=== PATIENT | female | born 1985 | race Two or more races ===

== ENCOUNTER 2024-12-13 12:22 | Emergency (ER) | payer MEDICAID, SELFPAY ==
[2024-12-13 12:33] VITALS: BP 124/80; PULSE 99; RESP 19; TEMP 36.7; O2SAT 98; BMI 28.3
--- NOTE | 2024-12-13 12:38 | PD.EDRME ---
Rapid Medical Screening Exam RME Arrival date/time: 12/13/24 12:22 38-year-old female with no known medical history presents to the emergency room with a chief complaint of altered mental status. Daughter at bedside states the mother routinely uses methamphetamine but states this morning her boyfriend dropped her off at her house and told her for the last 3 to 4 days patient has been talking about her mother who she has not seen and is not making any sense. Daughter states the mother is not at her baseline mentation. The mother also has multiple bruises to her arms face that according to daughter were not there. I have greeted and performed a focused initial assessment of this patient. A comprehensive ED assessment and evaluation of the patient, analysis of all test results, and completion of the medical decision making process will be conducted by additional ED providers. Chief Complaint: General Adult/Misc Complain Time Seen by Provider: 12/13/24 12:30 Vital signs: Vital Signs Temperature 98.1 F 12/13/24 12:33 Pulse Rate 99 12/13/24 12:33 Respiratory Rate 19 12/13/24 12:33 Blood Pressure 124/80 12/13/24 12:33 Pulse Oximetry (%) 98 12/13/24 12:33 Oxygen Delivery Method Room Air 12/13/24 12:33 Vital signs reviewed by provider: Yes
[2024-12-13 12:56] LABS: Collection Type, Urine Clean Catch
[2024-12-13 13:17] LABS: Basophils # (Auto) 0.1 Thou/mm3 (0.0-0.2); Basophils % (Auto) 1 % (0-2.5); Eosinophils % (Auto) 1 % (0-10); Immature Granulocytes % (Auto) 0 % (0-0); Immature Granulocytes Auto 0.03 Thou/mm3 (0.00-0.00); Lymphocytes # (Auto) 1.7 Thou/mm3 (1.0-4.8); Lymphocytes % (Auto) 20 % (10-50); Mean Corpuscular HGB Conc 27.8 g/dl (31.0-37.0); Mean Corpuscular Volume 61 fL (80-100); Monocytes # (Auto) 0.5 Thou/mm3 (0.0-0.8); Monocytes % (Auto) 5 % (0-12); Neutrophils # (Auto) 6.4 Thou/mm3 (1.8-7.7); Neutrophils % (Auto) 74 % (37-80); Nucleated Red Blood Cell % 0 /100 WBC (0); Platelet Count 314 Thou/mm3 (140-440); RDW Standard Deviation 43.5 fL (36.4-46.3); Red Blood Count 4.42 Miln/mm3 (4.00-5.20); White Blood Count 8.7 Thou/mm3 (3.6-11.0)
[2024-12-13 13:22] LABS: Ammonia < 10 uMol/L (11-32)
[2024-12-13 13:23] LABS: Hemoglobin 7.5 g/dL (12.0-16.0)
[2024-12-13 13:32] LABS: Bacteria,Urine 4+; Bilirubin,Urine Negative (Negative); Blood,Urine 3+ (Negative); Clarity,Urine Turbid (Clear/Hazy); Color,Urine Yellow (Lt Yel-Yel); Glucose, Urine Negative (Negative); Ketones,Urine Negative (Negative); Leukocyte Esterase,Urine Positive (Negative); Nitrite,Urine Positive (Negative); Protein,Urine Trace (Neg - Trace); RBC,Urine 13 /hpf (0-3); Specific Gravity,Urine 1.033 (1.001-1.035); Squamous Epithelial Cell,Urine 3 /hpf (0-5); Urobilinogen,Urine Negative mg/dL (0.0-1.0); WBC,Urine 13 /hpf (0-5)
[2024-12-13 13:34] LABS: Alanine Aminotransferase 11 U/L (10-49); Albumin, Serum 4.3 gm/dL (3.5-5.0); Albumin/Globulin Ratio 1.4 (1.2-2.2); Alcohol, Blood Medical < 3.0 mg/dL (0-10.0); Alkaline Phosphatase 70 U/L (46-116); Anion Gap 12 (7-16); Aspartate Amino Transferase 14 U/L (0-34); BUN/Creatinine Ratio 27 Ratio (12-20); Bilirubin,Total 0.3 mg/dL (0.3-1.2); Blood Urea Nitrogen 16 mg/dL (9-23); Calcium 8.7 mg/dL (8.3-10.6); Calcium (Corrected) 8.7 mg/dL (8.5-10.1); Carbon Dioxide 24.5 mMol/L (20.0-31.0); Chloride 107 mMol/L (98-107); Creatinine (Component) 0.6 mg/dL (0.6-1.3); Estimated Creatinine Clearance 113.3 mL/min (>60); Globulin 3.1 gm/dL (2.3-3.5); Glucose 104 mg/dL (74-106); Osmolality,Calculated 286 (275-295); Potassium 3.3 mMol/L (3.4-5.1); Sodium 143 mMol/L (136-145); Total Protein 7.4 gm/dL (5.7-8.2); Troponin I < 0.002 ng/mL (0.0-0.045); eGFR > 60 See Note
[2024-12-13 13:56] LABS: Amphetamine/Methamp Scrn,U Positive (Negative); Barbiturate Screen,Urine Negative (Negative); Benzodiazepines Screen,Urine Negative (Negative); Benzoylecgonine Screen, Ur Negative (Negative); Fentanyl Screen,Urine Negative (Negative); Opiate Screen,Urine Negative (Negative); THC Screen,Urine Negative (Negative)
[2024-12-13 17:20] LABS: Path Review Blood Smear Sent to Pathologist
--- NOTE | 2024-12-13 18:01 | PC.NURSE ---
1735 PT CALLED FROM LOBBY AND NO ANSWER 1800 PT CALLED FROM LOBBY AND NO ANSWER
--- NOTE | 2024-12-13 18:05 | PC.NURSE ---
CALLED FROM LOBBY AND NO ANSWER. NOT FOUND INSIDE THE E.D. OR OUTSIDE
== END 2024-12-13 18:06 | disposition left against medical advice (07) ==
PROVIDERS: Nurse Practitioner Family; Emergency Provider Family Medicine; PCP Family Medicine
DX: R41.82 Altered mental status, unspecified (principal); Z53.29 Procedure and treatment not carried out because of patient's decision for other reasons
CPT/HCPCS: 36415; 80053; 80307; 80320; 81001; 82140; 84484; 85025; 87077; 87086; 87186; 99281; G0480

== ENCOUNTER 2024-12-14 02:46 | Emergency (ER) | payer MEDICAID, SELFPAY ==
[2024-12-14] VITALS (7 sets, daily range): BP systolic 109–148; BP diastolic 72–101; PULSE 60–91; RESP 18–20; TEMP 36.2–36.8; O2SAT 96–100; BMI 32.2
--- NOTE | 2024-12-14 02:52 | EDNOTE_ITS ---
ED Psych RME/HPI General Chief Complaint: Psychiatric Symptoms Stated Complaint: HEARING VOICES Time Seen by Provider: 12/14/24 03:16 Arrival date/time: 12/14/24 02:46 RME / HPI RME / HPI Narrative: This section includes all my notes and documentations, including HPI, PE, and ED course. Jose L Aldrich MD HPI: 38 y/o female with recent Hx of Methamphetamine use presents to ED BIBA from home c/o hearing voices s/p methamphetamine use x 2 days ago. Patient was out walking around after the voices told her to run out the door and was picked up by [employer]. [employer] was going to drop her off at home, but mother said that she was not acting like herself. Patient wanted to come to ED and is requesting assistance in stopping with substance abuse. Admits to only hearing voices when under the influence to which she admits to using every other day. Denies history of depression or schizophrenia or any other psychiatric diagnoses or treatments. Denies HI/SI, or visual hallucinations. She has never been admitted to an [facility] facility. Also denies abdominal pain. No other complaints. ROS: All negative except as documented in HPI. Physical Exam: General:? Alert and oriented.? Eyes:? Conjunctivae and lids clear.? EOMI.? PERRL. ENT:? No nasal congestion.? Pharynx normal.? Tympanic membrane normal bilaterally.??? Neck:? Supple.? Heart:? RRR.? Lungs:? No respiratory distress.? Good air movement.? No rhonchi, wheezing, rales.?? Abdomen:? Soft and nontender.? Skin:? Warm and dry.?? Neuro:? Alert and oriented X 3.? Cranial Nerves II-XII grossly intact.? No peripheral motor deficits. Musculoskeletal:? All major joints and bones are not tender with no limited ROM.? I reviewed EMS notes. Blood tests and urine tests pending. Oral KCl given for hypokalemia. When patient started walking around the ED with agitation and not being cooperative, she was given Xanax 1.5 mg to help her rest. At 6 AM on 12/14/2024, the care of the patient was transferred to Dr. ROCHA. Jose L Aldrich MD Related Data Allergies Allergy/AdvReac Type Severity Reaction Status Date / Time No Known Allergies Allergy Mild nka Uncoded 12/14/24 03:26 Review of Systems Review of Systems Systems Reviewed: All systems reviewed, normal except as documented Past Medical History Social History SMOKING STATUS: Former smoker SUBSTANCE USE: methamphetamine SUBSTANCE LAST USED: days (ago) (2) LIVES WITH: Family ED Exam Narrative Physical exam: Refer to HPI above Course Quality Measures none Orders Category Date Time Status Straight [In and Out Catheter] X1 Care 12/14/24 04:05 Active Referral Psych Eval Stat Cons 12/14/24 02:59 Active Acetaminophen Stat Lab 12/14/24 03:21 Completed Alcohol, Blood Medical Stat Lab 12/14/24 03:21 Completed CBC Stat Lab 12/14/24 03:21 Received CMP [Comprehensive Metabolic Panel] Stat Lab 12/14/24 03:21 Completed Drug Screen,Urine Stat Lab 12/14/24 02:58 Ordered Free T4 (Free Thyroxine) Stat Lab 12/14/24 03:21 Completed HCG Qualitative,Urine Stat Lab 12/14/24 02:58 Ordered HCG,Qualitative Serum Stat Lab 12/14/24 03:21 Completed Magnesium Stat Lab 12/14/24 03:21 Completed Salicylate Stat Lab 12/14/24 03:21 Completed TSH [Thyroid Stimulating Hormone] Stat Lab 12/14/24 03:21 Completed UA, C/S IF [Urinalysis, C/S if Indicated] Stat Lab 12/14/24 02:58 Ordered ALPRazoLAM [Xanax] Med 12/14/24 03:13 Discontinued 1.5 mg PO X1 ONE KCL 10% Liq UDC 15 ML Med 12/14/24 04:04 Discontinued 40 meq PO X1 ONE Vital Signs Vital signs: Vital Signs Temperature 97.8 F 12/14/24 03:39 Pulse Rate 79 12/14/24 03:39 Respiratory Rate 18 12/14/24 03:39 Blood Pressure 148/72 H 12/14/24 03:39 Pulse Oximetry (%) 99 12/14/24 03:39 Oxygen Delivery Method Room Air 12/14/24 03:39 Psych MDM Narrative MDM Narrative:: Scribe Attestation: IDalila, am scribing for and in the presence of Dr. Aldrich. Provider Notation: Although this document has been carefully reviewed, there may still be some phonetic and other typographical errors.? These errors are purely grammatical due to imperfections in the software program and should not be construed in any way to? compromise the substance of the patient's medical care during this visit. 38 y/o female with recent Hx of Methamphetamine use presents to ED BIBA from home c/o hearing voices s/p methamphetamine use x 2 days ago. Patient data External records reviewed:: [facility] previous records (No prior ED records available for review.) and EMS form Clinical information provided by:: patient and EMS Social determinants that could affect healthcare access:: substance use (Methamphetamine) Patient has the following chronic illnesses:: None reported How is presenting disease/condition affected by chronic disease/condition?: no chronic disease Evaluation data The following diagnostics were reviewed and interpreted by me:: lab results Lab and/or radiology exams considered but not ordered:: None Interpretation Summary: Complete diagnostic test results pending. Medications / Prescriptions Medications or Prescriptions considered but not ordered:: None Medication administrations:: Medication Administration History Discontinued Medications Alprazolam (Alprazolam 0.25 Mg Tablet) 1.5 mg PO X1 ONE Stop: 12/14/24 03:14 Last Admin: 12/14/24 03:55 Dose: 1.5 mg Documented By: EE Potassium Chloride (Potassium Chloride 10% 20 Meq/15 Ml Udc) 40 meq PO X1 ONE Stop: 12/14/24 04:05 Xanax, Potassium Chloride. Consultations Consultation(s) initiated? (list below): No Diagnosis Psych Differential Diagnosis: acute psychosis, suicidal ideation, bipolar disorder, depression, drug-induced psychotic disorder, acute anxiety and other (schizophrenia) Most likely diagnosis given after review of the tests above:: Acute psychosis Admission Indicated Admission indicated?: not indicated Explain why admission is indicated or not indicated:: Complete diagnostic test results and evaluation by our ED critical care transport nurse pending. Admission Request Was there a request for admission?: No Disposition Plan Disposition Plan: other (specify) (Care of the patient to Dr. ROCHA.) Discharge Plan Problem List Clinical Impression: Acute psychosis Patient/Caregiver Discharge Instructions Print Language: Bulgarian
[2024-12-14 03:30] LABS: Basophils # (Auto) 0.1 Thou/mm3 (0.0-0.2); Basophils % (Auto) 1 % (0-2.5); Eosinophils # (Auto) 0.1 Thou/mm3 (0.0-0.5); Eosinophils % (Auto) 1 % (0-10); Hematocrit 25.6 % (36.0-46.0); Immature Granulocytes % (Auto) 0 % (0-0); Immature Granulocytes Auto 0.02 Thou/mm3 (0.00-0.00); Lymphocytes # (Auto) 1.6 Thou/mm3 (1.0-4.8); Lymphocytes % (Auto) 18 % (10-50); Mean Corpuscular HGB Conc 28.5 g/dl (31.0-37.0); Mean Corpuscular Hemoglobin 17.1 pg (25.0-35.0); Mean Corpuscular Volume 60 fL (80-100); Monocytes # (Auto) 0.5 Thou/mm3 (0.0-0.8); Monocytes % (Auto) 6 % (0-12); Neutrophils # (Auto) 6.7 Thou/mm3 (1.8-7.7); Neutrophils % (Auto) 75 % (37-80); Nucleated Red Blood Cell % 0 /100 WBC (0); Platelet Count 335 Thou/mm3 (140-440); RDW Standard Deviation 42.6 fL (36.4-46.3); Red Blood Count 4.28 Miln/mm3 (4.00-5.20)
[2024-12-14] MEDS: ALPRazoLAM 0.25 MG TABLET 1.5 MG PO (03:55)
[2024-12-14 04:00] LABS: Acetaminophen < 2.0 mcg/mL (10.0-20.0); Alanine Aminotransferase 12 U/L (10-49); Albumin, Serum 4.4 gm/dL (3.5-5.0); Albumin/Globulin Ratio 1.4 (1.2-2.2); Alcohol, Blood Medical < 3.0 mg/dL (0-10.0); Alkaline Phosphatase 67 U/L (46-116); Anion Gap 6 (7-16); Aspartate Amino Transferase 19 U/L (0-34); BUN/Creatinine Ratio 30 Ratio (12-20); Bilirubin,Total 0.3 mg/dL (0.3-1.2); Blood Urea Nitrogen 15 mg/dL (9-23); Calcium 9.1 mg/dL (8.3-10.6); Calcium (Corrected) 9.1 mg/dL (8.5-10.1); Carbon Dioxide 24.6 mMol/L (20.0-31.0); Chloride 104 mMol/L (98-107); Creatinine (Component) 0.5 mg/dL (0.6-1.3); Estimated Creatinine Clearance 139.2 mL/min (>60); Free T4 (Free Thyroxine) 1.21 ng/dL (0.89-1.76); Globulin 3.2 gm/dL (2.3-3.5); Glucose 111 mg/dL (74-106); Magnesium 1.8 mg/dL (1.6-2.6); Osmolality,Calculated 271 (275-295); Salicylate < 3.0 mg/dL; Sodium 135 mMol/L (136-145); Total Protein 7.6 gm/dL (5.7-8.2); eGFR > 60 See Note
[2024-12-14 04:12] LABS: HCG,Qualitative Serum Negative
[2024-12-14 04:50] LABS: Hemoglobin 7.3 g/dL (12.0-16.0)
[2024-12-14] MEDS: POTASSIUM CHLORIDE 10% 20 MEQ/15 ML UDC 40 MEQ PO (04:57)
[2024-12-14 05:04] LABS: Collection Type, Urine Clean Catch
[2024-12-14 05:17] LABS: Bacteria,Urine 2+; Bilirubin,Urine Negative (Negative); Blood,Urine Trace (Negative); Clarity,Urine Clear (Clear/Hazy); Color,Urine Lt-Yellow (Lt Yel-Yel); Glucose, Urine Negative (Negative); Ketones,Urine Negative (Negative); Leukocyte Esterase,Urine Positive (Negative); Nitrite,Urine Positive (Negative); PH,Urine 5.5 (5.0-7.0); Protein,Urine Negative (Neg - Trace); RBC,Urine 3 /hpf (0-3); Specific Gravity,Urine 1.024 (1.001-1.035); Squamous Epithelial Cell,Urine 1 /hpf (0-5); Urobilinogen,Urine Negative mg/dL (0.0-1.0); WBC,Urine 32 /hpf (0-5)
[2024-12-14 05:19] LABS: HCG Qualitative,Urine Negative
[2024-12-14 05:20] LABS: Culture Indicated,Urine Yes
[2024-12-14 05:22] LABS: Amphetamine/Methamp Scrn,U Negative (Negative); Barbiturate Screen,Urine Negative (Negative); Benzodiazepines Screen,Urine Positive (Negative); Benzoylecgonine Screen, Ur Negative (Negative); Fentanyl Screen,Urine Negative (Negative); Opiate Screen,Urine Negative (Negative); THC Screen,Urine Negative (Negative)
--- NOTE | 2024-12-14 06:23 | PD.EDADDENDU ---
Emergency Room Addendum <Sintia Valiente - Last Filed: 12/14/24 16:44> Addendum Narrative: 0600: Care assumed from Dr. Aldrich, the previous shift emergency physician. Past medical, surgical, social and family history reviewed. Vitals and home medications reviewed. I will assume the care of the patient at this time, pending reevaluation and final disposition. Please refer to the emergency department record for history and examination from initial visit.? Physical exam by me shows patient under no acute distress at this time. CBC shows microcytic anemia. UA consistent with UTI. Drug screen negative other than benzodiazepines which were given here. Physical exam by me shows patient under no acute distress at this time. Sleepy but arousable to voice. At 0902 hours, patient's family is here her niece and mother. They states the patient is usually aggressive and has bizarre behavior at home. They state the patient does not live with them just visits randomly, but when she does she is aggressive, scares the kids, and breaks stuff. They cannot take care of her. Family does not know if she is using drugs. 0958: Mental health placed patient on a 5150 hold for gravely disabled. The patient was placed in ED observation care at 12/14/2024 at 0958 hours. The patient was placed in ED observation care after mental health placed her on 5150 hold and gravely disabled. The patients past medical history, social history, and family history were reviewed. The plan of care will include serial examinations. While in ED observation the patient will have access to water, food, and personal hygiene. If the patient takes home medication(s), they will be continued in ED observation. 1255: Patient got accepted to [facility] in [place]. ETA is 1640 hours. 1630: EMS here to pick the patient and transport to [facility] in [place]. ED observation care ended at 12/14/2024 at 1630 hours. <Milagros Grider MD - Last Filed: 12/14/24 06:34> Addendum Narrative: 0600: Care assumed from Dr. Aldrich, the previous shift emergency physician. Past medical, surgical, social and family history reviewed. Vitals and home medications reviewed. I will assume the care of the patient at this time, pending mental health evaluation. Please refer to the emergency department record for history and examination from initial visit.? Physical exam by me shows patient under no acute distress at this time. The patient was placed in ED observation care at 12/14/2024 at 0600 hours. The patient was placed in ED observation care pending mental health evaluation. <del>Then,</del> <del>mental</del> <del>health</del> <del>placed</del> <del>her</del> <del>on</del> <del>5150</del> <del>hold</del> <del>and</del> <del>now</del> <del>on</del> <del>observation</del> <del>care</del> <del>because</del> <del>of</del> <del>undifferentiated</del> <del>decompensated</del> <del>behavioral</del> <del>health</del> <del>evaluation,</del> <del>no</del> <del>behavioral</del> <del>health</del> <del>bed</del> <del>available</del>. The patients past medical history, social history, and family history were reviewed. The plan of care will include serial examinations. While in ED observation the patient will have access to water, food, and personal hygiene. If the patient takes home medication(s), they will be continued in ED observation. Physical exam by me shows patient under no acute distress at this time. XX: Patient is medically cleared for psychiatric evaluation. CBC shows microcytic anemia. UA consistent with UTI. Drug screen negative other than benzodiazepines which were given here. XX: Mental health placed the patient on a 5150 hold, pending placement. XX: Patient has been accepted to [facility]. ETA is XX. <del>xx:</del> <del>EMS</del> <del>here</del> <del>to</del> <del>pick</del> <del>the</del> <del>patient</del> <del>and</del> <del>transport</del> <del>to</del> <del>[place]</del> <del>[facility]</del> <del>[facility].</del> <del>ED</del> <del>observation</del> <del>care</del> <del>ended</del> <del>at</del> <del>12/14/2024</del> <del>at</del> <del>xx</del> <del>hours.</del> XX: Mental health cleared the patient/ rescinded the psychiatric hold. Safety plan in place. XX: Patient discharged. <del>ED</del> <del>observation</del> <del>care</del> <del>ended</del> <del>at</del> <del>12/14/2024</del> <del>at</del> <del>XX</del> <del>hours.</del>
[2024-12-14 07:38] LABS: Iron < 2 mcg/dL (50-170); Percent Iron Saturation 0 % (20-55); Total Iron Binding Capacity 365 mcg/dL (250-425); Unsaturated Iron Binding 363 (225-295)
[2024-12-14] MEDS: cephALEXin 250 MG CAPSULE 500 MG PO (08:08)
[2024-12-14] MEDS: MAGNESIUM OXIDE 400 MG TABLET PO (08:09)
--- NOTE | 2024-12-14 11:18 | PC.SS ---
FRANDY Rose met with the patient to complete a mental health evaluation as ED provider requesting one for the patient coming in due to hearing voices. c iron worker met with patient and explained role and reason for contact. The limits of confidentiality were disclosed to the patient. During encounter, patient appears to be unkempt with poor hygiene. Patient is able to engage in assessment, however has to be redirected in questions being asked repeatedly. Per patient, she was BIBA today due to running around yesterday and doing bad things . When asked what exactly, the patient could not say. Patient informs she had an argument with her brother Gaetano and could not explain what the argument was about. Patient denied SI and HI. Per patient he does experience audio hallucination. Patient reports I hear the voices say my name over and over . Patient appears to be responding to internal stimuli, speaking about her father when not asked about him. Patient additionally has to be redirected in answering questions. Per patient she is ambulatory and does not require use of DME. Patient denies following up with primary care at this time and denies any mental health diagnosis or medication intake. Per patient she has not had any previous suicide attempts or been placed on a hold in the past. Patient was asked about her personal hygiene, per patient she last ate and showered three days ago before coming into the ED. Patient states her boyfriend Wilber has to tell her to shower and remind her to eat. Per patient she lives with her boyfriend Wilber in [place] and unable to provide address or phone number as she could not recall it. Patient states she has four children, three are minors and are under her mother's Cedrick's custody. Patient reports her mother to be her emergency contact if necessary. Per patient she has been sleeping fine expect for having tooth ache at times. Patient disclosed to meth use three days ago and reports frequent use weekly. Of note, the patient does not have any history being seen for mental health reasons, toxicology report is negative for substances aside from Benzodiapines, which were provided in the ED and [place] scale screening for suicide is low triage. Patient provided verbal consent to speak to her mother Cedrick for collateral information. In speaking to her mother, she reports the patient was observed to be outside of her home late last night attempting to brake into personal property, cars and homes and law enforcement was contacted. Per mother, the patient has been noted to be acting different and displaying behaviors, appearing to not be at baseline from her normal mental state. Patient's mother is unsure if patient utilizes substances and does not feel safety planning would be appropriate as she has minor children in the home and does not feel it would be safe for them. Cedrick reports unknown mental health diagnosis or treatment on behalf of the patient at this time. Per Cedrick, she does not know where the patient resides as she will not disclose this information to the family. After clinical consultation with [facility], Alea Fonseca, it was determined that the patient meets criteria to be placed on a 5150 Hold for Gravely Disabled due to unviable safety plan, patient having to be prompted to complete her personal hygiene needs and responding to internal stimuli. Patient was provided with advisement. ED attending provider Marni, bed side DELMA Marte and family updated on disposition plan. ASW to send off packet for LPS placement.
--- NOTE | 2024-12-14 11:25 | PC.NURSE ---
[facility] called to take information regarding patient. I gave rep. information regarding patient coming to the hospital and current status.
--- NOTE | 2024-12-14 11:49 | PC.SS ---
[facility] called requesting a covid test for the patient as they are considering providing acceptance, notified bedside RN of request.
[2024-12-14] MEDS: LORazepam 0.5 MG TABLET 2 MG PO (12:17)
--- NOTE | 2024-12-14 12:52 | PC.SS ---
Addendum entered by WALDEMAR Burch 12/14/24 16:40: late entry: notified mother Cedrick in regards to patient being accepted at [facility]. Addendum entered by WALDEMAR Burch 12/14/24 15:18: ETA 1640 with [facility]. Addendum entered by WALDEMAR Burch 12/14/24 14:25: Faxed COVID test results to [facility]. Addendum entered by WALDEMAR Burch 12/14/24 13:42: Dispatch contacted, [facility] ETA pending. Original Note: SS update: patient was accepted to [facility] in [place]. [address] Crowe. Bed available now. Nurse to nurse report call . ASW to set up transportation for the patient.
--- NOTE | 2024-12-14 13:04 | PC.NURSE ---
Nurse-nurse report given to [facility]. I spoke with Klaus GNUYỄN and gave him report of patient's current status and medication that has been given.
== END 2024-12-14 16:09 ==
PROVIDERS: Emergency Medicine; Emergency Provider Emergency Medicine
DX: Z04.6 Encounter for general psychiatric examination, requested by authority (principal); F23 Brief psychotic disorder; D50.9 Iron deficiency anemia, unspecified; F15.90 Other stimulant use, unspecified, uncomplicated; Z75.1 Person awaiting admission to adequate facility elsewhere
CPT/HCPCS: 51701; 36415; 80053; 80307; 80320; 80329; 81001; 81025; 83540; 83550; 83735; 84439; 84443; 84703; 85025; 87077; 87086; 87186; 87811; 90839; 96127; 99285; A9270; G0480